=== PATIENT | male | born 1975 | race Two or more races ===

== ENCOUNTER 2023-03-31 13:52 | Emergency (ER) | payer OTHER ==
[~2023-03-31] VITALS: Ht 172.7 cm; Wt 68.0 kg
[2023-03-31 14:36] LABS: BASOPHILS # (AUTO) 0.1 K/uL (0.0-0.2); BASOPHILS % (AUTO) 0.8 % (0.0-2.0); EOSINOPHILS # (AUTO) 0.1 K/uL (0.0-0.7); EOSINOPHILS % (AUTO) 1.1 % (0.0-6.0); HEMATOCRIT 47 % (39-51); HEMOGLOBIN 15.8 g/dL (13.5-17.5); LYMPHOCYTES # (AUTO) 2.3 K/uL (0.8-4.8); LYMPHOCYTES % (AUTO) 21.4 % (20.0-44.0); MEAN CORPUSCULAR HEMOGLOBIN 33 PG (26.0-33.0); MEAN CORPUSCULAR HGB CONC 33 g/dl (31.0-36.0); MEAN CORPUSCULAR VOLUME 98 fL (80-96); MONOCYTES # (AUTO) 0.8 K/uL (0.1-1.30); NEUTROPHILS # (AUTO) 7.7 K/uL (1.8-8.9); NEUTROPHILS % (AUTO) 69.7 % (43.0-81.0); PLATELET COUNT (AUTO) 405 K/uL (150-450); RED BLOOD CELL COUNT(AUTO) 4.84 MIL/uL (4.5-6.0); RED CELL DISTRIBUTION WIDTH 14.3 % (11.5-15.0)
[2023-03-31 14:52] LABS: ALANINE AMINOTRANSFERASE 15 U/L (12-78); ALBUMIN 4.1 g/dL (3.4-5.0); ALKALINE PHOSPHATASE 103 U/L (46-116); ASPARTATE AMINOTRANSFERASE 12 U/L (15-37); BILIRUBIN,DIRECT 0.3 mg/dL (0.0-0.2); BILIRUBIN,TOTAL 1.3 mg/dL (0.2-1.0); CALCIUM, SERUM 9.6 mg/dL (8.5-10.1); CARBON DIOXIDE 20 mmol/L (21-32); CHLORIDE 104 mmol/L (98-107); CREATININE 1.2 mg/dL (0.6-1.3); GLUCOSE 85 mg/dL (74-106); LIPASE 89 U/L (73-393); POTASSIUM 3.5 mmol/L (3.5-5.1); SODIUM SERUM 140 mmol/L (136-145); UREA NITROGEN, BLOOD 14 mg/dL (7-18)
[2023-03-31] MEDS ORDERED: OMEP40CA21 PO (15:52)
[2023-03-31 17:11] VITALS: BP 115/75; TEMP 98.3; O2SAT 100
== END 2023-03-31 16:25 | disposition home or self-care (01) ==
LOC: ER 14:44
DX: R10.13 Epigastric pain (principal)
CPT/HCPCS: 36415; 71045-TC; 80048-TC; 80076-TC; 83690-TC; 84484-TC; 85025-TC